=== PATIENT | female | born 1960 | race American Indian/Alaskan Native ===

== ENCOUNTER 2019-03-29 08:26 | Outpatient (CLI) | payer MEDICAID, MEDICARE ==
--- NOTE | 2019-03-29 10:01 | Ultrasound Report ---
RENAL ULTRASOUND HISTORY: LEFT FLANK PAIN / HEMATURIA COMPARISON: None. TECHNIQUE: Multiple real-time ultrasonographic grayscale images were obtained of the kidneys and urin sarah bladder. FINDINGS: Right kidney: No significant abnormality. No hydronephrosis. Kidney measures 10.2 x 4.0 x 5.7 cm. Left kidney: No significant abnormality. No hydronephrosis. Kidney measures 9.6 x 5.4 x 4.9 cm. Urinary bladder: No significant abnormality. Additional findings: None. IMPRESSION: Normal study. Signer Name: Tarik Arambula MD Signed: 03/29/2019 9:57 AM Workstation Name: [id number]
== END 2019-03-29 08:27 | disposition home or self-care (01) ==
LOC: SPVWC 08:26
PROVIDERS: ATTEND Internal Medicine
DX: R31.9 Hematuria, unspecified (principal)
CPT/HCPCS: 76770

== ENCOUNTER 2021-03-05 09:45 | Outpatient (CLI) | payer MEDICARE ==
--- NOTE | 2021-03-05 16:20 | Vascular Lab Report ---
DUPLEX DOPPLER LOWER EXTREMITY VEINS, BILATERAL INDICATION / CLINICAL INFORMATION: LOWER LEG PAIN. TECHNIQUE: Duplex doppler imaging was performed through the veins of both lower extremities using venous eusebia lauren and other maneuvers. COMPARISON: None available. FINDINGS: Right Common Femoral vein: Negative. Right Femoral vein: Negative. Right Popliteal vein: Negative. Right Calf veins: Negative. Left Common Femoral vein: Negative. Left Femoral vein: Negative. Left Popliteal vein: Negative. Left Calf veins: Negative. Additional findings: None. IMPRESSION: 1. No sonographic evidence for DVT in either lower extremity. Signer Name: Calixto Covarrubias MD Signed: 03/05/2021 4:16 PM Workstation Name: [email or web address]
== END 2021-03-05 09:46 | disposition home or self-care (01) ==
LOC: VAS 09:45
PROVIDERS: ATTEND Internal Medicine
DX: M79.661 Pain in right lower leg (principal); M79.662 Pain in left lower leg
CPT/HCPCS: 93970

== ENCOUNTER 2021-03-18 20:04 | Emergency (ER) | payer MEDICARE, OTHER ==
[2021-03-18] MEDS ORDERED: SODIUM CHLORIDE 0.9% 1000 ML 1,000 ML IV ONE (20:36)
[2021-03-18] MEDS ORDERED: ONDANSETRON 4 MG/2 ML INJ IV ONE (20:36)
[2021-03-18] MEDS ORDERED: HYDROmorphone 1 MG/1 ML INJ IV ONE (20:36)
[2021-03-18 20:52] LABS: Basophils % (Auto) 0.4 % (0.0-1.8); Eosinophils % (Auto) 0.3 % (0.0-4.3); Hematocrit 42.8 % (30.3-42.9); Lymphocytes # (Auto) 1.5 K/mm3 (1.2-5.4); Lymphocytes % (Auto) 14.1 % (13.4-35.0); Mean Corpuscular HGB Conc 33 % (30-34); Mean Corpuscular Volume 95 fl (79-97); Monocytes # (Auto) 0.7 K/mm3 (0.0-0.8); Monocytes % (Auto) 6.3 % (0.0-7.3); Platelet Count 205 K/mm3 (140-440); Red Blood Count 4.51 M/mm3 (3.65-5.03); Red Cell Distribution Width 14.9 % (13.2-15.2)
[2021-03-18 21:14] LABS: Alanine Aminotransferase 13 units/L (7-56); Albumin 4.2 g/dL (3.9-5); BUN/Creatinine Ratio 20; Blood Urea Nitrogen 16 mg/dL (7-17); Calcium 9.9 mg/dL (8.4-10.2); Hemolysis Index 7
[2021-03-18 21:17] LABS: Bilirubin,Direct < 0.2 mg/dL (0-0.2)
--- NOTE | 2021-03-18 21:32 | Emergency Department Report ---
HPI - General Chief Complaint: Abdominal Pain Time Seen by Provider: 03/18/21 20:21 - HPI HPI: 60-year-old female with history of hyperlipidemia presents complaining of sudden onset right-sided abdominal pain which started just prior to arrival. The moo ent states that she was driving when she began to suddenly experience a very sharp pain radiating from her right upper quadrant to her right lower quadrant. She describes the pain as sharp and 9 out of 10 in severity such that she was no longer able to function. She developed nausea and vomiting. Otherwise she denies any associated fever/chills, headache, vision change, neck pain, chest pain, shortness of breath, cough, back pain, focal weakness, sensory changes, dysuria, or any other complaints. ED Past Medical Hx - Past Medical History Previous Medical History?: Yes Additional medical history: Hyperlipidemia - Social History Smoking Status: Unknown if ever smoked - Medications Home Medications: Home Medications Medication Instructions Recorded Confirmed Last Taken Type Ondansetron [Zofran ODT TAB] 4 mg PO Q8HR PRN #15 tab.rapdis 03/18/21 Unknown Rx Tamsulosin [Flomax] 0.4 mg PO QDAY #7 cap 03/18/21 Unknown Rx ED Review of Systems ROS: Stated complaint: ABDOMINAL PAIN Other details as noted in HPI Constitutional: denies: chills, fever Eyes: denies: eye pain, vision change ENT: denies: throat pain, congestion Respiratory: denies: cough, shortness of breath Cardiovascular: denies: chest pain, palpitations Gastrointestinal: abdominal pain, nausea, vomiting. denies: diarrhea Genitourinary: denies: dysuria, frequency Musculoskeletal: denies: back pain, myalgia Skin: denies: rash Neurological: denies: headache, weakness, numbness Physical Exam - Physical Exam Vital Signs: Vital Signs 03/18/21 03/18/21 20:20 20:41 Temperature 98.8 F Pulse Rate 80 74 Respiratory 20 14 Rate Blood Pressure 138/78 Blood Pressure 130/91 138/78 [Right] O2 Sat by Pulse 100 100 Oximetry Physical Exam: GENERAL: Well developed and well nourished. In moderate distress secondary to pain HEENT: Normocephalic. No obvious signs of trauma. Dry mucous membranes. EYES: Extraocular movements are intact. Pupils are equal round and reactive to light bilaterally NECK: Supple. Trachea is midline. LUNGS: Nonlabored breathing. Equal chest rise bilaterally. Clear to auscultation bilaterally. HEART/CARDIOVASCULAR: Regular rate and rhythm. No murmurs or rubs. VASCULAR: 2+ peripheral pulses. Cap refill < 2 seconds ABDOMEN: Abdomen is soft and nondistended. There is significant tenderness noted in the right upper quadrant and right lower quadrant with voluntary but no involuntary guarding. There is no rebound tenderness. SKIN: Skin is warm and dry NEURO: Patient is awake, alert, and oriented. live in caregiver II-XII grossly intact. No focal deficits. Normal motor and sensory exam throughout. Normal speech. MUSCULOSKELETAL: No obvious deformities. No significant tenderness. N BACK/SPINE: No costovertebral angle tenderness. ED Course Vital Signs 03/18/21 03/18/21 20:20 20:41 Temperature 98.8 F Pulse Rate 80 74 Respiratory 20 14 Rate Blood Pressure 138/78 Blood Pressure 130/91 138/78 [Right] O2 Sat by Pulse 100 100 Oximetry ED Medical Decision Making - Lab Data Result diagrams: 03/18/21 20:41 03/18/21 20:41 Lab Results 03/18/21 03/18/21 03/18/21 Range/Units 20:41 20:41 20:41 WBC 10.7 (4.5-11.0) K/mm3 RBC 4.51 (3.65-5.03) M/mm3 Hgb 14.0 (10.1-14.3) gm/dl Hct 42.8 (30.3-42.9) % MCV 95 (79-97) fl MCH 31 (28-32) pg MCHC 33 (30-34) % RDW 14.9 (13.2-15.2) % Plt Count 205 (140-440) K/mm3 Lymph % (Auto) 14.1 (13.4-35.0) % Ballard % (Auto) 6.3 (0.0-7.3) % Eos % (Auto) 0.3 (0.0-4.3) % Baso % (Auto) 0.4 (0.0-1.8) % Lymph # (Auto) 1.5 (1.2-5.4) K/mm3 Ballard # (Auto) 0.7 (0.0-0.8) K/mm3 Eos # (Auto) 0.0 (0.0-0.4) K/mm3 Baso # (Auto) 0.0 (0.0-0.1) K/mm3 Seg Neutrophils % 78.9 H (40.0-70.0) % Seg Neutrophils # 8.4 H (1.8-7.7) K/mm3 Sodium 137 (137-145) mmol/L Potassium 4.2 (3.6-5.0) mmol/L Chloride 99.2 (98-107) mmol/L Carbon Dioxide 32 H (22-30) mmol/L Anion Gap 10 mmol/L BUN 16 (7-17) mg/dL Creatinine 0.8 (0.6-1.2) mg/dL Estimated GFR > 60 ml/min BUN/Creatinine Ratio 20 % Glucose 99 (65-100) mg/dL Calcium 9.9 (8.4-10.2) mg/dL Magnesium 2.00 (1.7-2.3) mg/dL Total Bilirubin 0.40 (0.1-1.2) mg/dL Direct Bilirubin < 0.2 (0-0.2) mg/dL Indirect Bilirubin 0.2 mg/dL AST 15 (5-40) units/L ALT 13 (7-56) units/L Alkaline Phosphatase 68 (35-129) units/L Troponin T < 0.010 (0.00-0.029) ng/mL Total Protein 7.7 (6.3-8.2) g/dL Albumin 4.2 (3.9-5) g/dL Albumin/Globulin Ratio 1.2 % Lipase 42 (13-60) units/L Urine Color (Yellow) Urine Turbidity (Clear) Urine pH (5.0-7.0) Ur Specific [place] (1.003-1.030) Urine Protein (Negative) mg/dL Urine Glucose (UA) (Negative) mg/dL Urine Ketones (Negative) mg/dL Urine Blood (Negative) Urine Nitrite (Negative) Urine Bilirubin (Negative) Urine Urobilinogen (<2.0) mg/dL Ur Leukocyte Esterase (Negative) Urine WBC (Auto) (0.0-6.0) /HPF Urine RBC (Auto) (0.0-6.0) /HPF U Epithel Cells (Auto) (0-13.0) /HPF Urine Bacteria (Auto) (Negative) /HPF Urine Mucus /HPF 06/24/21 Range/Units 21:52 WBC (4.5-11.0) K/mm3 RBC (3.65-5.03) M/mm3 Hgb (10.1-14.3) gm/dl Hct (30.3-42.9) % MCV (79-97) fl MCH (28-32) pg MCHC (30-34) % RDW (13.2-15.2) % Plt Count (140-440) K/mm3 Lymph % (Auto) (13.4-35.0) % Ballard % (Auto) (0.0-7.3) % Eos % (Auto) (0.0-4.3) % Baso % (Auto) (0.0-1.8) % Lymph # (Auto) (1.2-5.4) K/mm3 Ballard # (Auto) (0.0-0.8) K/mm3 Eos # (Auto) (0.0-0.4) K/mm3 Baso # (Auto) (0.0-0.1) K/mm3 Seg Neutrophils % (40.0-70.0) % Seg Neutrophils # (1.8-7.7) K/mm3 Sodium (137-145) mmol/L Potassium (3.6-5.0) mmol/L Chloride (98-107) mmol/L Carbon Dioxide (22-30) mmol/L Anion Gap mmol/L BUN (7-17) mg/dL Creatinine (0.6-1.2) mg/dL Estimated GFR ml/min BUN/Creatinine Ratio % Glucose (65-100) mg/dL Calcium (8.4-10.2) mg/dL Magnesium (1.7-2.3) mg/dL Total Bilirubin (0.1-1.2) mg/dL Direct Bilirubin (0-0.2) mg/dL Indirect Bilirubin mg/dL AST (5-40) units/L ALT (7-56) units/L Alkaline Phosphatase (35-129) units/L Troponin T (0.00-0.029) ng/mL Total Protein (6.3-8.2) g/dL Albumin (3.9-5) g/dL Albumin/Globulin Ratio % Lipase (13-60) units/L Urine Color Yellow (Yellow) Urine Turbidity Slightly-cloudy (Clear) Urine pH 6.0 (5.0-7.0) Ur Specific [place] 1.025 (1.003-1.030) Urine Protein <15 mg/dl (Negative) mg/dL Urine Glucose (UA) Neg (Negative) mg/dL Urine Ketones Neg (Negative) mg/dL Urine Blood Lg (Negative) Urine Nitrite Neg (Negative) Urine Bilirubin Neg (Negative) Urine Urobilinogen < 2.0 (<2.0) mg/dL Ur Leukocyte Esterase Tr (Negative) Urine WBC (Auto) 6.0 (0.0-6.0) /HPF Urine RBC (Auto) > 182.0 (0.0-6.0) /HPF U Epithel Cells (Auto) 5.0 (0-13.0) /HPF Urine Bacteria (Auto) 1+ (Negative) /HPF Urine Mucus Few /HPF - EKG Data -: EKG Interpreted by Ia - EKG Data 03/18/21 22:35 EKG #1 normal sinus rhythm. Normal axis. Occasional PACs. Normal intervals. T wave inversions noted in leads V4 through V6. No significant ST segment abnormalities. EKG #2 normal sinus rhythm. Normal axis. Occasional PACs. Normal intervals. T wave inversions noted in leads V4 through V6. No significant ST segment abnormalities. - Radiology Data CHEST 1 VIEW 03/18/2021 8:45 PM INDICATION / CLINICAL INFORMATION: abd/chest pain. COMPARISON: None available. FINDINGS: SUPPORT DEVICES: None. HEART / MEDIASTINUM: No significant abnormality. LUNGS / PLEURA: No significant pulmonar y or pleural abnormality. No pneumothorax. ADDITIONAL FINDINGS: No significant additional findings. IMPRESSION: 1. No acute findings. Signer Name: Fabian Nuno MD Signed: 03/18/2021 9:06 PM Workstation Name: [id number] CT ABDOMEN AND PELVIS WITH CONTRAST INDICATION / CLINICAL INFORMATION: RUQ and RLQ tenderness x3days [id number] 100ml. TECHNIQUE: Axial CT images were obtained through the abdomen and pelvis following the administration of intravenous contrast. All CT scans at this location are performed using CT dose reduction for ALARA by means of automated exposure control. COMPARISON: None available. FINDINGS: LOWER CHEST: No significant abnormality. LIVER: No significant abno rmality. GALLBLADDER: Minimal sludge versus tiny stones. No evidence of cholecystitis. PANCREAS: No significant abnormality. SPLEEN: No significant abnormality. ADRENALS: No significant abnormality. KIDNEYS / URETERS: There is moderate right-sided hydroureteronephrosis with suspected 3 mm stone in the distal right ureter at the ureterovesicular junction. However, there are also multiple pelvic phleboliths within this region. URINARY BLADDER: No significant abnormality. REPRODUCTIVE ORGANS: Multiple partially calcified uterine fibroids. STOMACH / SMALL BOWEL: No significant abnormality. COLON: No significant abnormality. APPENDIX: No significant abnormality. PERITONEUM: No free fluid. No free air. No fluid collection. LYMPH NODES: No significant adenopathy. AORTA / ARTERIES: No significant abnormality. IVC / VEINS: No significant abnormality. SKELETAL SYSTEM: No significant abnormality. ADDITIONAL FINDINGS: None. IMPRESSION: 1. Moderate right-sided hydroureteronephrosis with suspected 3 mm calculus in the distal right ureter at the UVJ. 2. Partially calcified uterine fibroids. 3. Minimal gallbladder sludge versus tiny stones. There is no CT evidence of cholecystitis. Signer Name: Fabian Nuno MD Signed: 03/18/2021 8:51 PM Workstation Name: [id number] - Medical Decision Making 60-year-old female presenting with acute onset of right-sided abdominal pain with associated nausea and vomiting. On initial assessment, she is in moderate distress secondary to pain. She has dry mucous membranes. She has significant tenderness noted to the right upper quadrant right lower quadrant with voluntary but no involuntary guarding. There is no rebound tenderness. There is no CVA tenderness. We will perform broad work-up with a full set of labs, EKG, and CT of the abdomen pelvis with IV contrast to assess for evidence of appendicitis, kidney stone, versus other intra-abdominal abnormality. We will give 1 L of IV fluids, Dilaudid, and Zofran and reassess. On repeat assessment shortly after medication administration, the patient reports that her pain is almost entirely resolved and she no longer feels nauseated. We will continue to observe her. Labs have resulted and reveal no significant leukocytosis or anemia. There is no significant electrolyte abnormality. Kidney function is normal. CT of the abdomen pelvis shows 3 mm right sided ureteral stone at the UVJ with associated hydroureteronephrosis. Urinalysis shows greater than 182 RBCs and no evidence of infection. At 10:30 PM, I went to reassess the patient again and she is resting comfortably in the bed without any pain or any other symptoms. I informed her of the results as well as the plan to discharge her home with instructions to continue aggressive fluid hydration, take Flomax that I will prescribe, and use ibuprofen 600 mg up to 3 times daily as needed for pain. I will also prescribe Zofran. She is to follow-up with a urologist. The patient expressed understanding and agreement with this plan of care. Critical care attestation.: If time is entered above; I have spent that time in minutes in the direct care of this critically ill patient, excluding procedure time. ED Disposition Clinical Impression: Right ureteral stone, Renal colic on right side Disposition: TO HOME OR SELFCARE Is pt being admited?: No Condition: Stable Instructions: Abdominal Pain (ED), Kidney Stones, Renal Colic, Dietary Guidelines to Help Prevent Kidney Stones Additional Instructions: Please continue to stay hydrated. Drink fluids containing electrolytes such as Gatorade or Pedialyte. You may take ibuprofen 600 to 800 mg up to 3 times daily with food as needed for pain. I have also prescribed Zofran 4 mg to take as needed for nausea. Take Flomax 0.4 mg once daily for 1 week. Please strain your urine and once the kidney stone passes please bring the stone with you to your follow-up appointment with a urologist. Return to the emergency department should he develop fever/chills, significantly worsening pain, or any other new concerns. Prescriptions: Tamsulosin [Flomax] 0.4 mg PO QDAY #7 cap Ondansetron [Zofran ODT TAB] 4 mg PO Q8HR PRN #15 tab.rapdis PRN Reason: Nausea Referrals: MIKE MAYS MD [Primary Care Provider] - 3-5 Days JAY JAY ELY MD [Staff Physician] - 3-5 Days
--- NOTE | 2021-03-18 21:56 | Cat Scan Report ---
CT ABDOMEN AND PELVIS WITH CONTRAST INDICATION / CLINICAL INFORMATION: RUQ and RLQ tenderness x3days [id number] 100ml. TECHNIQUE: Axial CT images were obtained through the abdomen and pelvis following the administration of intraven ous contrast. All CT scans at this location are performed using CT dose reduction for ALARA by means of automated exposure control. COMPARISON: None available. FINDINGS: LOWER CHEST: No significant abnormality. LIVER: No significant abnormality. GALLBLADDER: Minimal sludge versus tiny stones. No evidence of cholecystitis. PANCREAS: No significant abnormality. SPLEEN: No significant abnormality. ADRENALS: No significant abnormality. KIDNEYS / URETERS: There is moderate right-sided hydroureteronephrosis with suspected 3 mm stone in t he distal right ureter at the ureterovesicular junction. However, there are also multiple pelvic phle boliths within this region. URINARY BLADDER: No significant abnormality. REPRODUCTIVE ORGANS: Multiple partially calcified uterine fibroids. STOMACH / SMALL BOWEL: No significant abnormality. COLON: No significant abnormality. APPENDIX: No significant abnormality. PERITONEUM: No free fluid. No free air. No fluid collection. LYMPH NODES: No significant adenopathy. AORTA / ARTERIES: No significant abnormality. IVC / VEINS: No significant abnormality. SKELETAL SYSTEM: No significant abnormality. ADDITIONAL FINDINGS: None. IMPRESSION: 1. Moderate right-sided hydroureteronephrosis with suspected 3 mm calculus in the distal right ureter at the UVJ. 2. Partially calcified uterine fibroids. 3. Minimal gallbladder sludge versus tiny stones. There is no CT evidence of cholecystitis. Signer Name: Fabian Nuno MD Signed: 03/18/2021 9:51 PM Workstation Name: [id number]
[2021-03-18 22:08] LABS: Bacteria,Urine 1+ /HPF (Negative); Bilirubin,Urine NEG (Negative); Blood,Urine LG (Negative); Color,Urine Yellow (Yellow); Mucus,Urine FEW /HPF; Protein,Urine <15 mg/dL mg/dL (Negative); Urobilinogen,Urine < 2.0 mg/dL (<2.0)
[2021-03-18 22:10] LABS: RBC,Urine > 182.0 /HPF (0.0-6.0)
--- NOTE | 2021-03-18 22:11 | XRay Report ---
CHEST 1 VIEW 03/18/2021 8:45 PM INDICATION / CLINICAL INFORMATION: abd/chest pain. COMPARISON: None available. FINDINGS: SUPPORT DEVICES: None. HEART / MEDIASTINUM: No significant abnormality. LUNGS / PLEURA: No significant pulmonary or pleural abnormality. No pneumothorax. ADDITIONAL FINDINGS: No significant additional findings. IMPRESSION: 1. No acute findings. Signer Name: Fabian Nuno MD Signed: 03/18/2021 10:06 PM Workstation Name: [id number]
[2021-03-18 23:25] VITALS: BP 134/86
--- NOTE | 2021-03-19 18:08 | Electrocardiograph Report ---
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
--- NOTE | 2021-03-19 18:09 | Electrocardiograph Report ---
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
== END 2021-03-18 23:27 | disposition home or self-care (01) ==
LOC: ED 20:04
DX: N21.1 Calculus in urethra (principal); N23 Unspecified renal colic; Z79.899 Other long term (current) drug therapy; Z88.8 Allergy status to other drugs, medicaments and biological substances
CPT/HCPCS: 36415; 71045; 74177; 80048; 80076; 81001; 83690; 83735; 84484; 85025; 93005; 96361; 96374; 96375; 99285; J1170; J2405; J7030; Q9967